=== PATIENT | female | born 1980 | race Hispanic/Latino ===

== ENCOUNTER 2017-01-11 09:55 | Emergency (ER) | payer BC, OTHER ==
[2017-01-11] MEDS ORDERED: ZOFRAN IV ONE (10:12)
[2017-01-11] MEDS ORDERED: MORPHINE IV ONE (10:12)
[2017-01-11] MEDS ORDERED: NACL 0.9% 1000 ML 1,000 ML IV ONE (10:15)
[2017-01-11] MEDS ORDERED: MORPHINE ONE (10:17)
--- NOTE | 2017-01-11 10:21 | Emergency Department Report ---
ED Abdominal Pain HPI - General Chief Complaint: Abdominal Pain Stated Complaint: ABD PAIN Time Seen by Provider: 01/11/17 10:07 Source: patient, RN notes reviewed, old records reviewed Mode of arrival: Ambulatory Limitations: No Limitations - History of Present Illness Initial Comments: This is a 36-year-old female, previously unknown to this provider. Primary care Dr.: Brittney Bariatric surgeon: Mendoza Past medical history: Lap band placement patient presents to the ER with epigastric pain that radiated to the back, and pain over her lap band port. She had mild nausea, but no vomiting. No fevers or chills, no chest pain or shortness of breath, no irritative or obstructive urinary symptoms. Patient was found to be quite tender over her lap band, and this provider contacted the patient's bariatric surgeon, who recommended full aspiration of the contents of the lap band, and indicated that he could see the patient in the office later on this week. Patient was given 1 L of fluid, 4 mg of morphine, 4 mg of Zofran , and had her lap band port fluoroscopically drained. Patient reports that this completely resolved her symptoms. She is walking around the ER, was able to drink oral contrast without difficulty, and is requesting to be discharged at this time. A CT scan was initially ordered prior to discussion with the patient's bariatric surgeon, however given her resolution of symptoms, young age , preference to avoid CT scan out of concern for ionizing radiation, and closely arranged outpatient follow-up, I don't think the patient requires an emergent CT scan, and she will be discharged with instructions to follow-up with her outpatient bariatric surgeon. Return precautions are reviewed. Complaint: abdominal pain -: Gradual Location: periumbilical Radiation: back Consistency: now resolved Associated Symptoms: nausea - Related Data Home Medications Medication Instructions Recorded Confirmed Last Taken Calcium Carbonate [ Calcium 01/26/13 01/26/13 01/25/13 Elemental 600 mg] Mv,Apolinar,Min/Iron/Folic Acid/Lut 1 each PO 01/26/13 01/26/13 01/25/13 [Complete Multi Tablet] Allergies Allergy/AdvReac Type Severity Reaction Status Date / Time No Known Allergies Allergy Unverified 01/26/13 07:54 ED Review of Systems ROS: Stated complaint: ABD PAIN Other details as noted in HPI Constitutional: denies: fever Eyes: denies: eye discharge ENT: denies: epistaxis Respiratory: denies: cough Cardiovascular: denies: chest pain Gastrointestinal: abdominal pain, nausea Genitourinary: denies: dysuria Skin: as per HPI Neurological: denies: confusion ED Past Medical Hx - Past Medical History Hx Hypertension: Yes Hx GERD: Yes - Surgical History Additional Surgical History: lab band. c section - Social History Smoking Status: Never Smoker Substance Use Type: Alcohol - Medications Home Medications: Home Medications Medication Instructions Recorded Confirmed Last Taken Type Calcium Carbonate [ Calcium 01/26/13 01/26/13 01/25/13 History Elemental 600 mg] Mv,Apolinar,Min/Iron/Folic Acid/Lut 1 each PO 01/26/13 01/26/13 01/25/13 History [Complete Multi Tablet] ED Physical Exam - General Limitations: No Limitations General appearance: alert, in no apparent distress - Head Head exam: Present: atraumatic, normocephalic - Eye Eye exam: Present: normal appearance - ENT ENT exam: Present: mucous membranes moist, normal external ear exam - Neck Neck exam: Present: normal inspection, full ROM - Respiratory Respiratory exam: Present: normal lung sounds bilaterally. Absent: respiratory distress, wheezes, rales, rhonchi, stridor - Cardiovascular Cardiovascular Exam: Present: regular rate, normal rhythm, normal heart sounds. Absent: bradycardia, tachycardia, irregular rhythm, systolic murmur, diastolic murmur, rubs, gallop - GI/Abdominal GI/Abdominal exam: Present: soft, tenderness (there is tenderness over the lap band port on the anterior abdominal wall initially. After aspiration, there is no tenderness.), normal bowel sounds. Absent: distended, guarding, rebound, rigid, pulsatile mass - Extremities Exam Extremities exam: Present: normal inspection, full ROM - Back Exam Back exam: Present: normal inspection, full ROM - Neurological Exam Neurological exam: Present: alert, normal gait, other (Extraocular movements intact. Tongue midline. No facial droop. Facial sensation intact to light touch in the V1, V2, V3 distribution bilaterally. 5 and 5 strength in 4 extremities.. Sensation is intact to light touch in 4 extremities.) - Psychiatric Psychiatric exam: Present: normal affect, normal mood - Skin Skin exam: Present: warm, dry, intact, normal color. Absent: rash ED Course Vital Signs 01/11/17 01/11/17 01/11/17 10:01 10:24 10:25 Temperature 98.3 F Pulse Rate 77 88 Respiratory 16 22 16 Rate Blood Pressure 132/60 Blood Pressure 138/77 [Left] O2 Sat by Pulse 99 100 99 Oximetry ED Medical Decision Making - Lab Data Result diagrams: 01/11/17 10:20 01/11/17 10:20 Vital Signs 01/11/17 01/11/17 01/11/17 10:01 10:24 10:25 Temperature 98.3 F Pulse Rate 77 88 Respiratory 16 22 16 Rate Blood Pressure 132/60 Blood Pressure 138/77 [Left] O2 Sat by Pulse 99 100 99 Oximetry Lab Results 01/11/17 01/11/17 01/11/17 Range/Units 10:20 10:20 10:20 WBC 9.0 (4.5-11.0) K/mm3 RBC 4.46 (3.65-5.03) M/mm3 Hgb 14.2 (10.1-14.3) gm/dl Hct 41.0 (30.3-42.9) % MCV 92 (79-97) fl MCH 32 (28-32) pg MCHC 35 H (30-34) % RDW 13.0 L (13.2-15.2) % Plt Count 355 (140-440) K/mm3 Lymph % (Auto) 48.3 H (13.4-35.0) % [place] % (Auto) 6.6 (0.0-7.3) % Eos % (Auto) 2.5 (0.0-4.3) % Baso % (Auto) 1.3 (0.0-1.8) % Lymph # 4.3 (1.2-5.4) K/mm3 [place] # 0.6 (0.0-0.8) K/mm3 Eos # 0.2 (0.0-0.4) K/mm3 Baso # 0.1 (0.0-0.1) K/mm3 Seg Neutrophils % 41.3 (40.0-70.0) % Seg Neutrophils # 3.7 (1.8-7.7) K/mm3 Sodium 141 (137-145) mmol/L Potassium 4.1 (3.6-5.0) mmol/L Chloride 100.5 (98-107) mmol/L Carbon Dioxide 26 (22-30) mmol/L Anion Gap 19 mmol/L BUN 13 (7-17) mg/dL Creatinine 0.6 L (0.7-1.2) mg/dL Estimated GFR > 60 ml/min BUN/Creatinine Ratio 22 % Glucose 91 (65-100) mg/dL Lactic Acid 1.60 (0.7-2.0) mmol/L Calcium 9.5 (8.4-10.2) mg/dL Total Bilirubin 0.20 (0.1-1.2) mg/dL AST 23 (5-40) units/L ALT 27 (7-56) units/L Alkaline Phosphatase 50 (35-129) units/L Total Protein 7.2 (6.3-8.2) g/dL Albumin 4.0 (3.9-5) g/dL Albumin/Globulin Ratio 1.3 % Lipase 67 H (13-60) units/L HCG, Quant (0-4) mIU/mL Urine Color (Yellow) Urine Turbidity (Clear) Urine pH (5.0-7.0) Ur Specific [place] (1.003-1.030) Urine Protein (Negative) mg/dL Urine Glucose (UA) (Negative) mg/dL Urine Ketones (Negative) mg/dL Urine Blood (Negative) Urine Nitrite (Negative) Urine Bilirubin (Negative) Urine Urobilinogen (<2.0) mg/dL Ur Leukocyte Esterase (Negative) Urine WBC (Auto) (0.0-6.0) /HPF Urine RBC (Auto) (0.0-6.0) /HPF U Epithel Cells (Auto) (0-13.0) /HPF Urine Bacteria (Auto) (Negative) /HPF Urine Mucus /HPF 01/11/17 01/11/17 Range/Units 10:20 11:04 WBC (4.5-11.0) K/mm3 RBC (3.65-5.03) M/mm3 Hgb (10.1-14.3) gm/dl Hct (30.3-42.9) % MCV (79-97) fl MCH (28-32) pg MCHC (30-34) % RDW (13.2-15.2) % Plt Count (140-440) K/mm3 Lymph % (Auto) (13.4-35.0) % [place] % (Auto) (0.0-7.3) % Eos % (Auto) (0.0-4.3) % Baso % (Auto) (0.0-1.8) % Lymph # (1.2-5.4) K/mm3 [place] # (0.0-0.8) K/mm3 Eos # (0.0-0.4) K/mm3 Baso # (0.0-0.1) K/mm3 Seg Neutrophils % (40.0-70.0) % Seg Neutrophils # (1.8-7.7) K/mm3 Sodium (137-145) mmol/L Potassium (3.6-5.0) mmol/L Chloride (98-107) mmol/L Carbon Dioxide (22-30) mmol/L Anion Gap mmol/L BUN (7-17) mg/dL Creatinine (0.7-1.2) mg/dL Estimated GFR ml/min BUN/Creatinine Ratio % Glucose (65-100) mg/dL Lactic Acid (0.7-2.0) mmol/L Calcium (8.4-10.2) mg/dL Total Bilirubin (0.1-1.2) mg/dL AST (5-40) units/L ALT (7-56) units/L Alkaline Phosphatase (35-129) units/L Total Protein (6.3-8.2) g/dL Albumin (3.9-5) g/dL Albumin/Globulin Ratio % Lipase (13-60) units/L HCG, Quant < 2 (0-4) mIU/mL Urine Color Yellow (Yellow) Urine Turbidity Clear (Clear) Urine pH 5.0 (5.0-7.0) Ur Specific [place] 1.025 (1.003-1.030) Urine Protein <15 mg/dl (Negative) mg/dL Urine Glucose (UA) Neg (Negative) mg/dL Urine Ketones Neg (Negative) mg/dL Urine Blood Sm (Negative) Urine Nitrite Neg (Negative) Urine Bilirubin Neg (Negative) Urine Urobilinogen < 2.0 (<2.0) mg/dL Ur Leukocyte Esterase Tr (Negative) Urine WBC (Auto) 4.0 (0.0-6.0) /HPF Urine RBC (Auto) 1.0 (0.0-6.0) /HPF U Epithel Cells (Auto) 2.0 (0-13.0) /HPF Urine Bacteria (Auto) 1+ (Negative) /HPF Urine Mucus Few /HPF - Radiology Data Radiology results: pending - Medical Decision Making Differential diagnosis: Left bands malfunction, LAP-BAND overfill Assessment and plan: 36-year-old female with pain over her laparoscopic band, is fluoroscopically drained, she has no symptoms at this time, she is able to drink without difficulty, she is reliable to follow-up with her outpatient bariatric surgeon, and she will be discharged at this time. Return precautions are reviewed. Critical care attestation.: If time is entered above; I have spent that time in minutes in the direct care of this critically ill patient, excluding procedure time. ED Disposition Clinical Impression: Abdominal pain Disposition: - TO HOME OR SELFCARE Is pt being admited?: No Does the pt Need Aspirin: No Condition: Stable Instructions: Abdominal Pain (ED) Additional Instructions: Continue current outpatient prescription medications. Follow up with your bariatric surgeon within the next 5 days. Return to the ER right away with new pain, worsening pain, migration of pain, fevers, chills, chest pain, shortness of breath, intractable nausea or vomiting, inability to tolerate liquid feeds. Referrals: PRIMARY CARE, [Primary Care Provider] - 3-5 Days ERASMO TORRES MD [Staff Physician] - 3-5 Days
[2017-01-11 10:25] VITALS: BP 138/77
[2017-01-11 10:45] LABS: Basophils % (Auto) 1.3 % (0.0-1.8); Eosinophils % (Auto) 2.5 % (0.0-4.3); Hemoglobin 14.2 gm/dl (10.1-14.3); Mean Corpuscular HGB Conc 35 % (30-34); Mean Corpuscular Hemoglobin 32 pg (28-32); Mean Corpuscular Volume 92 fl (79-97); Platelet Count 355 K/mm3 (140-440); Red Blood Count 4.46 M/mm3 (3.65-5.03)
[2017-01-11 10:57] LABS: Alanine Aminotransferase 27 units/L (7-56); Albumin/Globulin Ratio 1.3 %; BUN/Creatinine Ratio 22; Blood Urea Nitrogen 13 mg/dL (7-17); Calcium 9.5 mg/dL (8.4-10.2); Carbon Dioxide 26 mmol/L (22-30); Glucose 91 mg/dL (65-100); Lipase 67 units/L (13-60); Total Protein 7.2 g/dL (6.3-8.2)
[2017-01-11 10:58] LABS: Anion Gap 19 mmol/L; Chloride 100.5 mmol/L (98-107); Potassium 4.1 mmol/L (3.6-5.0); Sodium 141 mmol/L (137-145)
[2017-01-11 11:02] LABS: Alkaline Phosphatase 50 units/L (35-129)
[2017-01-11] MEDS ORDERED: XYLOCAINE 2% INFILTRATI ONE (11:05)
[2017-01-11 11:26] LABS: Bacteria,Urine 1+ /HPF (Negative); Bilirubin,Urine NEG (Negative); Blood,Urine SM (Negative); Ketones,Urine NEG (Negative); Leukocyte Esterase,Urine TR (Negative); Mucus,Urine FEW /HPF; Nitrite,Urine NEG (Negative); Protein,Urine <15 mg/dL mg/dL (Negative); Urobilinogen,Urine < 2.0 mg/dL (<2.0)
--- NOTE | 2017-01-11 13:15 | Fluoroscopy Report ---
UPPER GI SERIES History: Abdominal pain, nausea and vomiting, malfunctioning lap band. Findings: A modified upper GI series was performed. I spoke with Dr. Donaldson concerning this patient. Dr. Donaldson had previously placed the lap band on this patient approximately [address] Donaldson instructed me to access the lap band port and remove all internal fluid. [employer] film of the abdomen demonstrate a normal bowel gas pattern. The lab band appears in good position in the left upper quadrant. Using sterile technique and 1% lidocaine, the port in the supraumbilical region was accessed with an 18-gauge needle. Approximately 3.75 cc of clear blue fluid was aspirated. 25 fluoroscopic images were obtained after removing the fluid from the lap band. There is normal passage of the contrast agent through the esophagus, lap band and into the stomach. No evidence for obstruction. Impression: 3.75 cc of fluid was removed from the lap band. Followup modified upper GI demonstrates no evidence for obstruction. The lap band appears in good position.
== END 2017-01-11 13:38 | disposition home or self-care (01) ==
LOC: ED 09:55
DX: R10.13 Epigastric pain (principal); R11.0 Nausea; I10 Essential (primary) hypertension; Z98.890 Other specified postprocedural states
CPT/HCPCS: 36415; 74247; 80053; 81001; 82140; 83690; 84702; 85025; 96361; 96374; 96375; 99284; J2270; J2405; J7030; Q9963

== ENCOUNTER 2017-01-11 17:41 | Emergency (ER) | payer BC ==
[2017-01-11] MEDS ORDERED: NACL ONE (17:56)
[2017-01-11] MEDS ORDERED: ZOFRAN IV ONE (17:57)
[2017-01-11] MEDS ORDERED: MORPHINE IV ONE (17:57)
[2017-01-11] MEDS ORDERED: MORPHINE ONE ×2 (18:09)
--- NOTE | 2017-01-11 18:59 | Emergency Department Report ---
ED Abdominal Pain HPI - General Chief Complaint: Abdominal Pain Stated Complaint: ABDOMINAL PAIN Time Seen by Provider: 01/11/17 17:48 Source: patient Mode of arrival: Ambulatory Limitations: No Limitations - History of Present Illness Initial Comments: 36 year old female the past medical history GERD, hypertension, and LAP-BAND surgery 2013 presents to the hospital complaining of epigastric pain radiating to bilateral back. Pain is burning and dull in nature, intermittent, rated 8/ 10 intensity. Patient was seen and evaluated here earlier today by ED physician. After consultation with various exertion and at the [facility] patient had for a couple drainage of her lap band fluid and had a barium swallow showing passage of stomach contents from the esophagus to the stomach. Patient received 1 L normal saline, Zofran, and morphine and felt better prior to discharge. After discharge pain returned and therefore patient reports presented to the ED. No persistent nausea or vomiting. Patient does have diarrhea after receiving by mouth bariatric contrast. Severity scale (0 -10): 8 - Related Data Home Medications Medication Instructions Recorded Confirmed Last Taken Calcium Carbonate [ Calcium 01/26/13 01/26/13 01/25/13 Elemental 600 mg] Mv,Apolinar,Min/Iron/Folic Acid/Lut 1 each PO 01/26/13 01/26/13 01/25/13 [Complete Multi Tablet] Previous Rx's Medication Instructions Recorded Last Taken Type HYDROcodone/ACETAMINOPHEN [[place] 1 each PO Q6HR PRN #20 tablet 01/11/17 Unknown Rx 5-325 Tablet] Ondansetron [Zofran Odt] 4 mg PO Q8HR PRN #20 tab.rapdis 01/11/17 Unknown Rx Allergies Allergy/AdvReac Type Severity Reaction Status Date / Time No Known Allergies Allergy Unverified 01/26/13 07:54 ED Review of Systems ROS: Stated complaint: ABDOMINAL PAIN Other details as noted in HPI Comment: All other systems reviewed and negative Other: Constitutional: No fevers chills Neck: Denies pain Respiratory: Denies cough wheezing shortness of breath Cardiovascular: Denies chest pain GI: as per hpi : Denies dysuria Musculoskeletal: no extremity pain Skin: Denies rash, lesions, erythema Neurologic: Denies headache, numbness, weakness Psychiatric: Denies suicidal ideation, hallucinations ED Past Medical Hx - Past Medical History Previous Medical History?: Yes Hx Hypertension: Yes Hx GERD: Yes - Surgical History Past Surgical History?: Yes Additional Surgical History: lab band. c section - Social History Smoking Status: Never Smoker Substance Use Type: None - Medications Home Medications: Home Medications Medication Instructions Recorded Confirmed Last Taken Type Calcium Carbonate [ Calcium 01/26/13 01/26/13 01/25/13 History Elemental 600 mg] Mv,Apolinar,Min/Iron/Folic Acid/Lut 1 each PO 01/26/13 01/26/13 01/25/13 History [Complete Multi Tablet] HYDROcodone/ACETAMINOPHEN [[place] 1 each PO Q6HR PRN #20 tablet 01/11/17 Unknown Rx 5-325 Tablet] Ondansetron [Zofran Odt] 4 mg PO Q8HR PRN #20 tab.rapdis 01/11/17 Unknown Rx ED Physical Exam - General Limitations: No Limitations - Other Other exam information: General: No limitations, patient is alert in no acute distress Head exam: Atraumatic, normocephalic Eyes exam: Normal appearance, pupils equal reactive to light, extraocular movements intact ENT: Moist mucous membrane, normal oropharynx Neck exam: Normal inspection, full range of motion, no meningismus nontender Respiratory exam: Clear to auscultation bilateral, no wheezes, rales, crackles Cardiovascular: Normal rate and rhythm, normal heart sounds Abdomen: Soft, nondistended, epigastric tenderness, no Blum sign, with normal bowel sounds, no rebound, or guarding Extremity: Full range of motion normal inspection no deformity Back: Normal Inspection, full range of motion, no tenderness Neurologic: Alert, oriented x3, cranial nerves intact, no motor or sensory deficit Psychiatric: normal affect, normal mood Skin: Warm, dry, intact ED Course Vital Signs 01/11/17 19:26 Temperature 98.7 F Pulse Rate 66 Respiratory 18 Rate Blood Pressure 133/90 [Right] - Consultations Consultation #1: 01/11/17 19:[address] Rios, agrees to admit patient. CT pending ED Medical Decision Making - Radiology Data Radiology results: report reviewed CT of the pelvis IV contrast: Gastric lap band. No acute abnormality - Medical Decision Making Patient has relieved Her morphine 4 mg and Zofran [address] unremarkable. Patient be discharged home with pain medication and nausea medication. Her PMD Dr. Rios aware - Differential Diagnosis LAP-BAND dysfunction, gastritis, pancreatitis, biliary colic Critical Care Time: No Critical care attestation.: If time is entered above; I have spent that time in minutes in the direct care of this critically ill patient, excluding procedure time. ED Disposition Clinical Impression: Hx of laparoscopic gastric banding, Epigastric abdominal pain Disposition: OP ADMIT IP TO THIS HOSP Is pt being admited?: Yes Condition: Stable Instructions: Abdominal Pain (ED) Additional Instructions: Take the medication as prescribed. Follow-up with your bariatric surgeon. Return is symptoms worsen Prescriptions: HYDROcodone/ACETAMINOPHEN [[place] 5-325 Tablet] 1 each PO Q6HR PRN #20 tablet PRN Reason: Pain Ondansetron [Zofran Odt] 4 mg PO Q8HR PRN #20 tab.rapdis PRN Reason: Nausea And Vomiting Referrals: JORDY RIOS MD [Primary Care Provider] - 3-5 Days ERASMO TORRES MD [Staff Physician] - 3-5 Days Time of Disposition: 19:35 (Dr rios/hosp)
[2017-01-11 19:27] VITALS: BP 133/90
--- NOTE | 2017-01-11 19:30 | Cat Scan Report ---
FINAL REPORT EXAM: CT ABDOMEN PELVIS W CON HISTORY: abd pain n,v TECHNIQUE: CT abdomen and pelvis with oral and intravenous contrast PRIORS: None. FINDINGS: No acute abnormality identified in the lung bases. Gastric lap band identified with reservoir present. No focal abnormality identified within the liver parenchyma. The spleen demonstrates normal size and attenuation. No pancreatic abnormalities seen. The kidneys demonstrate symmetric contrast enhancement. No evidence of hydronephrosis. The adrenal glands are unremarkable Abdominal aorta is normal in caliber. No pathologically enlarged lymph nodes are identified. No signs of free fluid or free air No evidence of small bowel dilatation. Colon is nondistended. No pericolonic inflammatory change. The appendix is identified and is unremarkable. Oral contrast material extends throughout the colon. Urinary bladder is unremarkable. IMPRESSION: Gastric lap band No acute abnormality identified in the abdomen or pelvis
== END 2017-01-11 19:56 | disposition admitted as inpatient to this hospital (09) ==
LOC: ED 17:41
DX: R10.13 Epigastric pain (principal); I10 Essential (primary) hypertension; K21.9 Gastro-esophageal reflux disease without esophagitis
CPT/HCPCS: 74177; 96374; 96375; 99283; J2270; J2405; Q9966